=== PATIENT | female | born 1985 | race Caucasian/White ===

== ENCOUNTER 2016-08-02 04:35 | Emergency (ER) | payer SELFPAY ==
[2016-08-02 05:14] VITALS: BMI 42.3
--- NOTE | 2016-08-02 07:40 | EDPRACDOC ---
- General Information Information Source: Patient Mode of Arrival:: Car - History of Present Illness Onset: [employer] HPI: LEFT BREAST SWELLING AND PAIN REDNESS FOR APPROXIMATELY 1 WEEK PROGRESSIVELY GETTING WORSE NO ALLEVIATING OR AGGRAVATING FACTORS. HAD SOMETHING TO THIS SIMILAR APPROXIMATELY 6-7 MONTHS AGO INCISED AND DRAINED IN THE ED AT [facility] PATIENT STATES THAT SHE NEVER COMPLETELY RETURNED TO NORMAL AFTER THAT. SHE HAS NOT SEEN A PRIMARY CARE PHYSICIAN OR HAVE MEDICAL EVALUATIONS OF HER BREASTS THAT TIME. Last Tetanus: No <Joanne Foss - Last Filed: 08/02/16 07:38> <Teofilo Napoles - Last Filed: 08/02/16 10:17> - General Information Chief Complaint: Wound Stated Complaint: ABSCESS Time Seen by Provider: 08/02/16 05:09 Home Medications: Home Medications Aspirin/Acetaminophen/Caffeine [Goody's Ex-Str Powder Pkt (325/500/65mg)] 1 srikanth PO Q4-6H PRN 08/02/16 Oxycodone HCl [Roxicodone] 5 mg PO Q4-6H PRN #20 tablet 08/02/16 Sulfamethoxazole/Trimethoprim [Bactrim Ds Tablet] 2 tab PO BID #40 tab 08/02/16 Allergies/Adverse Reactions: Allergies Allergy/AdvReac Type Severity Reaction Status Date / Time Penicillins Allergy Hives* Verified 08/02/16 07:45 ED Past Medical History - History Reviewed Yes Nurses notes reviewed and agree except as marked - Patient Medical History Psychological History: Denies: Depression Surgical History: Denies: Hysterectomy - Social Medical History Smoking Status: Heavy tobacco smoker (5 or more cigarettes/day or daily pipe/ cigar) <Joanne Foss - Last Filed: 08/02/16 07:38> EDM Review of Systems - Review of Systems ROS Negative Except as Marked: Yes All systems reviewed and were negative except as marked <Joanne Foss - Last Filed: 08/02/16 07:38> - Physical Exam Constitutional: No apparent distress, Alert Last recorded Vital Signs: Last Vital Signs Temp 98.3 F 08/02/16 04:49 Pulse 86 08/02/16 04:49 Resp 18 08/02/16 04:49 BP 141/86 08/02/16 04:49 Pulse Ox 95 08/02/16 04:49 Oxygen Pulse Oxygen Saturation 95 O2 Device Room Air Oxygen Flow Rate Fraction of Inspired Oxygen ( FIO2) - Respiratory/Cardiovascular Respiratory/Cardiovascular Comment: LEFT BREAST DEMONSTRATES ERYTHEMA WARMTH WITHOUT SIGNIFICANT INDURATION 9 O' CLOCK POSITION LEFT BREAST TENDER PALPATION NO OBVIOUS PALPABLE ABSCESSES MINIMAL DRAINAGE IS ALSO TENDER PALPATION OF THE 6 O'CLOCK POSITION WHERE PRIOR INCISION AND DRAINAGE HAD BEEN PERFORMED. LYMPH NODES IN AXILLA APPEAR TO BE NORMAL <Joanne Foss N - Last Filed: 08/02/16 07:38> - Physical Exam Last recorded Vital Signs: Last Vital Signs Temp 98.2 F 08/02/16 07:30 Pulse 92 08/02/16 08:55 Resp 18 08/02/16 07:30 BP 146/75 08/02/16 08:55 Pulse Ox 93 08/02/16 08:55 Oxygen Pulse Oxygen Saturation 93 O2 Device Room Air Oxygen Flow Rate Fraction of Inspired Oxygen ( FIO2) <Teofilo Napoles - Last Filed: 08/02/16 10:17> ED Procedures - Incision and Drainage Informed of risks, benefits and alternatives described.: Yes Informed Consent Signed: Verbal Site: left medial breast Indication: Painful Mass Anesthetic: Lidocaine, with Epi Prep: Betadine Blade Size: 11 Incised Site drained: Reports: Blood, Pus Incised site was: Irrigated, Not Packed with Iodoform Notes: incision made parallel to areola at area of greatest fluctuance with good purulent outflow. irrigated until only thin blood returned. probed to break up loculations. <Teofilo Napoles - Last Filed: 08/02/16 10:17> - Re-evaluation Re-evaluation 1 Re-evaluation Time: 07:40 (CARE DOORS TO DR. NAPOLES PENDING ULTRASOUND RESULTS.) <Joanne Foss N - Last Filed: 08/02/16 07:38> - Results Lab Results: Urine Test Neg (NEGATIVE) 08/02/16 08:00 Lab Results 08/02/16 08:00 Urine Test Neg <Teofilo Napoles - Last Filed: 08/02/16 10:17> <Joanne Foss N - Last Filed: 08/02/16 07:38> Decision Time to Discharge: 10:16 - Departure Yes I personally saw and evaluated the patient. Disposition: Home Education/Counseling Given To: Patient Education/Counseling Given Regarding: Diagnosis, Treatment, Prognosis, Follow Up <Teofilo Napoles - Last Filed: 08/02/16 10:17> - Departure Condition: Stable Final Diagnosis: Breast abscess Instructions: MRSA (Methicillin Resistant Staphylococcus Aureus) (ED), Breast Abscess Drainage (ED) Referrals: None,No Provider [Primary Care Provider] - One Week Prescriptions: Oxycodone HCl [Roxicodone] 5 mg PO Q4-6H PRN #20 tablet PRN Reason: Breakthrough Pain Sulfamethoxazole/Trimethoprim [Bactrim Ds Tablet] 2 tab PO BID #40 tab
[2016-08-02] MEDS ORDERED: OXYCODONE HCL 5 MG TABLET PO ONE (08:01)
--- NOTE | 2016-08-02 09:00 | DIRPT ---
CLINICAL DATA: 30-year-old female presenting for ultrasound of a painful lump in the left breast. The patient has history of I \T\ D of this site in April 2016 followed by a course of antibiotics. She feels the antibiotics did not help, and now all of the lump has recently returned at an increased in size from prior. EXAM: ULTRASOUND OF THE LEFT BREAST COMPARISON: Previous exam(s). FINDINGS: On physical exam, there is a markedly erythematous warm area of skin spanning at least 5 cm adjacent to the lower-inner left areola. A firm mass is palpated at this site. Targeted ultrasound is performed, showing a superficial heterogeneous mass located within the skin spanning from the 6 o'clock to the 9 o'clock periareolar location. The hypoechoic mass measures approximately 5.0 x 0.7 cm in the anti radial plane. The area is too large to measure in the radial plane. The central most hypoechoic portion measures approximately 7-9 mm, likely representing the most liquified portion of the collection. IMPRESSION: There is an erythematous painful palpable area in the lower inner left breast, corresponding with a large likely superinfected sebaceous cyst. This does not appear amenable to percutaneous aspiration, and therefore incision and drainage and an additional course of antibiotics should be considered. RECOMMENDATION: Incision and drainage with a second course of antibiotics is recommended, and was discussed with the ED immediately following the exam with JESUS Santiago. I have discussed the findings and recommendations with the patient. Results were also provided in writing at the conclusion of the visit. If applicable, a reminder letter will be sent to the patient regarding the next appointment. BI-RADS CATEGORY 2: Benign Finding(s) Electronically Signed By: Aidee Lopez M.D. On: 08/02/2016 08:57
[2016-08-02 11:16] VITALS: BP 124/69; PULSE 91; TEMP 98
== END 2016-08-02 11:12 | disposition home or self-care (01) ==
LOC: ED 04:35
DX: N61.1 Abscess of the breast and nipple (principal)
CPT/HCPCS: 10060; 76642; 81025; 99284; J3490